=== PATIENT | female | born 1950 | race Caucasian/White ===

== ENCOUNTER 2016-11-08 23:52 | Emergency (ER) | payer OTHER ==
[~2016-11-08] VITALS: Ht 165.1 cm; Wt 70.4 kg
[2016-11-09] MEDS ORDERED: PERCOCET 5/31 TABLET PO (02:12)
[2016-11-09] MEDS ORDERED: MOBIC15 MG PO (02:12)
[2016-11-09 02:26] VITALS: BP 145/79
== END 2016-11-09 02:27 | disposition home or self-care (01) ==
LOC: EME 23:52
DX: M25.562 Pain in left knee (principal); M79.662 Pain in left lower leg
CPT/HCPCS: 73564; 93971; 99281; 99283

== ENCOUNTER 2017-05-02 11:10 | Emergency (ER) | payer OTHER ==
[~2017-05-02] VITALS: Ht 167.6 cm; Wt 67.7 kg
[~2017-05-02 11:10] MED LIST: MOBIC15 MG PO; PERCOCET 5/31 TABLET PO
[2017-05-02] MEDS ORDERED: MOTRIN800 MG PO (12:38)
[2017-05-02 13:26] VITALS: BP 132/76
== END 2017-05-02 13:26 | disposition home or self-care (01) ==
LOC: EME 11:10
PROC: 2W3MX1Z Immobilization of Left Lower Extremity using Splint (ICD-10-PCS; principal; 2017-05-02)
DX: S82.832A Other fracture of upper and lower end of left fibula, initial encounter for closed fracture (principal); S92.325A Nondisplaced fracture of second metatarsal bone, left foot, initial encounter for closed fracture; S92.335A Nondisplaced fracture of third metatarsal bone, left foot, initial encounter for closed fracture; W01.0XXA Fall on same level from slipping, tripping and stumbling without subsequent striking against object, initial encounter; Y92.008 Other place in unspecified non-institutional (private) residence as the place of occurrence of the external cause
CPT/HCPCS: 73590; 73610; 73630; 99281; 99284

== ENCOUNTER 2018-01-02 23:31 | Emergency (ER) | payer OTHER ==
[~2018-01-02] VITALS: Ht 167.6 cm; Wt 70.9 kg
[~2018-01-02 23:31] MED LIST changes: +MOTRIN800 MG PO
[2018-01-02 23:33] VITALS: BP 144/98
[2018-01-03] MEDS ORDERED: NORCO 5/3251 TABLET PO (00:42)
== END 2018-01-03 01:01 | disposition home or self-care (01) ==
LOC: EME 23:31
DX: M17.11 Unilateral primary osteoarthritis, right knee (principal); E78.5 Hyperlipidemia, unspecified; Z88.5 Allergy status to narcotic agent
CPT/HCPCS: 73564; 99281; 99284